=== PATIENT | female | born 1940 ===

== ENCOUNTER 2020-09-21 | Emergency (ER) | payer MEDICARE ==
[~2020-09-21] VITALS: Ht 160 cm; Wt 67.0 kg
--- NOTE | 2020-09-21 00:15 | NUR ---
Pt arrives via [facility]. In town visiting. Went to dinner with her daughter around 2200. Went to bed then suddenly woke up with severe right leg cramp and abdominal pain, nauseau, then passed out at about 2300. A+O x4 on arrival, denies complaints currently.
--- NOTE | 2020-09-21 00:39 | NUR ---
ELIE REED - DAUGHTER [phone]
--- NOTE | 2020-09-21 00:51 | NUR ---
XR at bedside.
[2020-09-21] MEDS ORDERED: PLEASE ENTER ALLERGIES MC SCH (01:00)
[2020-09-21] MEDS ORDERED: ONDANSETRON ODT 4 MG PO ONE (01:00)
[2020-09-21 01:09] LABS: BASOPHILS % (AUTO) 1 % (0-1); EOSINOPHILS % (AUTO) 3 % (1-7); LYMPHOCYTES % (AUTO) 25 % (22-44); MD NO; MEAN CORPUSCULAR HEMOGLOBIN 29.4 pg (27.0-34.8); MEAN CORPUSCULAR HGB CONC 32.8 g/dL (32.4-35.8); MEAN PLATELET VOLUME 8.4 fL (7.4-10.4); MONOCYTES % (AUTO) 9 % (2-9); NEUTROPHILS % (AUTO) 63 % (42-75); PLATELET COUNT 288 x10^3/uL (130-400); RED BLOOD COUNT 4.29 x10^6/uL (3.82-5.3); RED CELL DISTRIBUTION WIDTH 13.7 % (9.6-15.2)
[2020-09-21 01:10] LABS: ALANINE AMINOTRANSFERASE 31 U/L (12-78); ALBUMIN 3.5 g/dL (3.4-5.0); ANION GAP 5 mmol/L (5-15); CALCIUM 8.5 mg/dL (8.5-10.1); CHLORIDE 106 mmol/L (98-107); CREATININE 1.09 mg/dL (0.55-1.02)
[2020-09-21 01:14] LABS: ALKALINE PHOSPHATASE 67 U/L (45-117); BILIRUBIN,TOTAL 0.3 mg/dL (0.2-1.0); TOTAL PROTEIN 7.3 g/dL (6.4-8.2); TROPONIN I < 0.015 ng/mL (0.000-0.045)
--- NOTE | 2020-09-21 02:07 | NUR ---
Provided pt water per MD approval.
[2020-09-21 02:08] VITALS: BP 125/53
--- NOTE | 2020-09-21 02:24 | NUR ---
Contacted pt's daughter to update her. She reports they are staying at a hotel and unable to get to her car as it is locked in [employer] parking. She is comfortable with the pt getting a cab voucher to the hotel. Pt has cell phone on and working.
--- NOTE | 2020-09-21 02:28 | NUR ---
Pt refusing zofran. Pt comfortable with taxi plan.
--- NOTE | 2020-09-21 02:44 | NUR ---
Called taxi for pt. Pt agrees with and understands discharge plan and instructions.
== END 2020-09-21 02:50 ==
LOC: ED 02:15
DX: R11.0 Nausea (principal); R94.31 Abnormal electrocardiogram [ECG] [EKG]; R07.9 Chest pain, unspecified; I10 Essential (primary) hypertension; Z85.3 Personal history of malignant neoplasm of breast
CPT/HCPCS: 36415; 71045; 80053; 84484; 85025; 93005; 99285